=== PATIENT | female | born 1975 | race Caucasian/White ===

== ENCOUNTER → 2017-12-07 | Outpatient (CLI) | payer MEDICAID ==
[~2017-12-07] MED LIST: AMOX-291 PO; BIOT25005 PO; BUSP15TA PO; CETI-158 PO; CLON-364 PO; GABA-827 PO; Medical Marijuana PO; OMEG1CAP23 PO; ONDA4TAB10 PO; PROM25TA10 PO; RED600TA PO; SERT50TA PO; TIZA4TAB PO
== END ==
LOC: STAR 12:39
PROVIDERS: ATTEND Otolaryngology
DX: Z02.9 Encounter for administrative examinations, unspecified (principal)

== ENCOUNTER 2017-12-14 06:44 | Day surgery (SDC) | payer MEDICAID ==
[~2017-12-14] VITALS: Ht 170.2 cm; Wt 75.9 kg
[2017-12-14] MEDS ORDERED: LACTATED RINGERS 1,000 ML IV SCH (07:10)
[2017-12-14] MEDS ORDERED: LIDOCAINE 1%, 2ML ONE (07:12)
[2017-12-14] MEDS ORDERED: FLUORESCEIN OPHTHALMIC 1 MG STRIP ONE ×2 (07:14→08:49)
[2017-12-14] MEDS ORDERED: BACITRACIN OINT 500U/GM, 15 GM ONE (07:14)
[2017-12-14] MEDS ORDERED: EPINEPHRINE TOPICAL SOLN 1 MG/ML, 30ML ONE (07:14)
[2017-12-14] MEDS ORDERED: OXYMETAZOLINE NASAL SPRAY 0.05%, 15ML ONE (07:15)
[2017-12-14] MEDS ORDERED: LIDOCAINE/PF 2%-EPI 1:200K, 10ML ONE (07:15)
[2017-12-14] MEDS ORDERED: LIDOCAINE/PF 1%-EPI 1:200K, 30 ML ONE (07:16)
[2017-12-14] MEDS ORDERED: LIDOCAINE 1%, 2ML SQ PRN (07:30)
[2017-12-14] MEDS ORDERED: FENTANYL PF 250 MCG/5ML ONE (08:15)
[2017-12-14] MEDS ORDERED: MIDAZOLAM 1 MG/ML, 2ML ONE (08:15)
[2017-12-14] MEDS ORDERED: PROPOFOL 10 MG/ML, 20ML ONE (08:16)
[2017-12-14] MEDS ORDERED: ROCURONIUM 10 MG/ML,10ML ONE (08:17)
[2017-12-14] MEDS ORDERED: SODIUM CHLORIDE 0.9% PF 10ML ONE (08:17)
[2017-12-14] MEDS ORDERED: CEFAZOLIN 1,000 MG ONE ×2 (08:17)
[2017-12-14] MEDS ORDERED: ONDANSETRON 2MG/ML, 2ML ONE ×3 (08:19→11:03)
[2017-12-14] MEDS ORDERED: GLYCOPYRROLATE 0.4 MG/2 ML, 2ML ONE (08:19)
[2017-12-14] MEDS ORDERED: DEXAMETHASONE 4 MG/ML, 1ML ONE ×2 (08:19)
[2017-12-14] MEDS ORDERED: NEOSTIGMINE 1 MG/ML, 10ML ONE (08:19)
[2017-12-14] MEDS ORDERED: PROMETHAZINE 25 MG/ML, 1ML IV PRN (08:30)
[2017-12-14] MEDS ORDERED: LABETALOL 5MG/ML, 20ML IV PRN (08:30)
[2017-12-14] MEDS ORDERED: ONDANSETRON 2MG/ML, 2ML IVPush PRN (08:30)
[2017-12-14] MEDS ORDERED: FENTANYL PF 100 MCG/2ML IV PRN (08:30)
[2017-12-14] MEDS ORDERED: hydrALAzine 20 MG/ML, 1ML IV PRN (08:30)
[2017-12-14] MEDS ORDERED: HYDROmorphone 1 MG/ML, 1ML IV PRN (08:30)
[2017-12-14] MEDS ORDERED: ACETAMINOPHEN 325 MG TABLET PO PRN (08:30)
[2017-12-14] MEDS ORDERED: SODIUM CHLORIDE 0.9% 100 ML ONE (08:49)
[2017-12-14] MEDS ORDERED: VANCOMYCIN 1,000 MG ONE (08:49)
[2017-12-14] MEDS ORDERED: ACETAMINOPHEN 650 MG/20.3 ML UDC ONE (11:03)
== END 2017-12-14 13:15 | disposition home or self-care (01) ==
LOC: OUT 06:44
PROVIDERS: ATTEND Otolaryngology
DX: J32.9 Chronic sinusitis, unspecified (principal); J34.2 Deviated nasal septum
CPT/HCPCS: 30520; 31240; 31255; 31267; 31276; 31288; 88304; 88311; J1100; J2250; J2405; J2704; J2710; J3010; J3370; J3490; J7120; J0690